=== PATIENT | male | born 1990 | race Caucasian/White ===

== ENCOUNTER 2018-12-03 15:40 | Emergency (ER) | payer SELFPAY ==
[~2018-12-03] VITALS: Ht 177.8 cm; Wt 90.2 kg
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
--- NOTE | 2018-12-03 16:14 | NUR ---
PT NOW RESTING CALMLY IN GURNEY ON R SIDE. EVEN/REGULAR RESPIRATIONS.
[2018-12-03] MEDS ORDERED: ZIPRASIDONE 20 MG INJ IM ONE ×2 (16:48→17:00)
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
--- NOTE | 2018-12-03 17:11 | NUR ---
REPORT TO ANDREA GLOVER. PT MOVED TO ROOM 39. SITTER PRESENT. 2-POINT RESTRAINTS IN PLACE, +CMS. PT MOVING ALL EXTREMITIES. PT ASSISTED BY TECH TO USE URINAL, APPROX 400ML CLEAR URINE OUT. PT IN SEATED POSITION AND PROTECTING OWN AIRWAY
[2018-12-03 17:17] LABS: BASOPHILS # (AUTO) 0.02 x10^3/uL (0-0.1); BASOPHILS % (AUTO) 0 % (0-1); EOSINOPHILS # (AUTO) 0.07 x10^3/uL (0-0.4); EOSINOPHILS % (AUTO) 1 % (1-7); LYMPHOCYTES # (AUTO) 2.86 x10^3/uL (1-3.4); LYMPHOCYTES % (AUTO) 30 % (22-44); MD NO; MEAN CORPUSCULAR HEMOGLOBIN 32.2 pg (27.5-34.5); MEAN CORPUSCULAR HGB CONC 34.6 g/dL (33.2-36.2); MEAN CORPUSCULAR VOLUME 93.2 fL (81-97); MEAN PLATELET VOLUME 7.9 fL (7.4-10.4); MONOCYTES # (AUTO) 0.54 x10^3/uL (0.2-0.8); MONOCYTES % (AUTO) 6 % (2-9); NEUTROPHILS # (AUTO) 5.99 x10^3/uL (1.8-6.8); NEUTROPHILS % (AUTO) 63 % (42-75); PLATELET COUNT 330 x10^3/uL (130-400); RED BLOOD COUNT 5.12 x10^6/uL (4.38-5.82); RED CELL DISTRIBUTION WIDTH 13.6 % (9.4-14.8)
[2018-12-03 17:29] LABS: ANION GAP 6 mmol/L (5-15); CALCIUM 8.3 mg/dL (8.5-10.1); CHLORIDE 110 mmol/L (98-107)
[2018-12-03 17:34] LABS: CREATININE 1.02 mg/dL (0.7-1.3)
--- NOTE | 2018-12-03 17:58 | NUR ---
pt out of 2 point restraints at this time. pt is less aggresive at this time. pt on gurney and placed in high fowlers position. sitter is in hallway at this time. will continue to check on pt status.
--- NOTE | 2018-12-03 17:58 | NUR ---
late note 1730. lab called for critical values. etoh 0.480. dr tatum made aware.
--- NOTE | 2018-12-03 19:04 | NUR ---
REPORT RECEIVED FROM EDMUNDO MENDEZ.
[2018-12-03 19:17] VITALS: BP 114/78
--- NOTE | 2018-12-03 19:49 | NUR ---
pt sleeping in [facility]. repes even and unlabored. sitter monitoring from [facility] for safety.
--- NOTE | 2018-12-03 20:29 | NUR ---
PT GOT UP BUT PT WAS NOT ABLE TO WALK. PT URINATING ON THE FLOOR.
--- NOTE | 2018-12-03 21:29 | NUR ---
PT SLEEPING IN [facility]. RESPS EVEN AND UNLABORED. SITTER MONITORING FROM [facility] FOR SAFETY.
--- NOTE | 2018-12-03 23:00 | NUR ---
TASK RN: DC EDUCATION PROVIDED BY JASKARAN ISABEL. PT PROVIDED CLEAN SHIRT. PT AMBULATED STEADILY TO DC WITH CHALO. Addendum: 12/03/18 at 2301 by ANICETO FRIEND IN LOBBY TO TRANSPORT PT HOME
== END 2018-12-03 23:02 | disposition home or self-care (01) ==
LOC: ED 22:35
DX: F10.120 Alcohol abuse with intoxication, uncomplicated (principal)
CPT/HCPCS: 80048; 80307; 82962; 85025; 96372; 99283; J3486

== ENCOUNTER 2018-12-19 12:09 | Emergency (ER) | payer MEDICAID, OTHER ==
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
[2018-12-19 17:01] VITALS: BP 131/83
== END 2018-12-19 17:32 | disposition home or self-care (01) ==
LOC: ED 17:26
DX: F10.129 Alcohol abuse with intoxication, unspecified (principal)
CPT/HCPCS: 99283

== ENCOUNTER 2020-02-17 20:39 | Emergency (ER) | payer MEDICAID ==
[~2020-02-17] VITALS: Ht 182.9 cm; Wt 82.0 kg
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
--- NOTE | 2020-02-17 22:30 | NUR ---
LATE ENTRY - PT WAS MORE ALERT AND COOPERATIVE. PT ABLE TO GIVE HIS NAME AND DATE OF . PT STATED HE WOULD BE COOPERATIVE SO HE WAS TAKEN OUT OF RESTRAINTS. NO SKIN BREAKDOWN NOTED. PT THEN FOUND SITTING ON THE FLOOR. PT REMINDED TO STAY IN THE BED DUE TO SAFETY CONCERNS. CAYDEN CHADWICK TO BEDSIDE TO ASSIST IN GETTING BACK TO BED. PATIENT LEANED FORWARD WHILE ATTEMPTING TO STAND BUT DID NOT HIT HEAD AND WAS ASSISTED BACK TO THE BED BY CAYDEN CHADWICK AND THIS RN. PT AT RISK FOR FALL AND VERY INTOXICATED. PT ALSO SWINGING AT MEN AND FLIPPING THEM OFF WHILE IN THE ROOM. PT. THEN PLACED IN SOFT RESTRAINTS AND MOVED TO ROOM 4.
--- NOTE | 2020-02-17 22:55 | NUR ---
REPORT RECEIVED FROM ANDREA BARRAGAN. PT TO ED ROOM 4, PT REMOVED SW RESTRAINTS AND ATTEMPTING TO GET OOB, SECURITY AT PT'S BEDSIDE FOR LOCKING RESTRAINT APPLICATION X4, MONITORS APPLIED, SIDERAILS UP X2, CALL LIGHT WITHIN REACH.
--- NOTE | 2020-02-17 23:00 | NUR ---
REPORT GIVEN TO DIONY RN AND PT TAKEN TO ROOM 4
--- NOTE | 2020-02-17 23:33 | NUR ---
pt resting on gurney pulling at and attempting to remove restraints, discussed poc with pt, pt continues to attempt to pull at restraints. monitors in place, siderail sup x2, call light within reach
--- NOTE | 2020-02-18 00:40 | NUR ---
PT TWISTING BODY AND PULLING IN ATTEMPT TO REMOVE RESTRAINTS, PA UPDATED AND AT PT'S BEDSIDE FOR RECHECK, PA TO DISCUSS PT'S STATUS WITH ERP
[2020-02-18] MEDS ORDERED: LORazepam 2 MG/ML, 1ML ONE (00:54)
--- NOTE | 2020-02-18 00:58 | NUR ---
PT MEDIATED PER MAR
[2020-02-18] MEDS ORDERED: LORazepam 2 MG/ML, 1ML IM ONE (01:00)
[2020-02-18] MEDS ORDERED: LORazepam 1MG TABLET PO ONE ×2 (01:00)
--- NOTE | 2020-02-18 01:55 | NUR ---
PT TALKING LOUDLY IN ROOM TOWARDS [facility], STATED " I HAVE A BIG DELONTE". THIS RN DISCUSSED WITH PT HIS INAPPROPRIATE BEHAVIOR, PT VERBALIZED UNDERSTANDING AND AGREED TO STOP. MONITORS IN PLACE, SIDERAILS UP X2, CALL LIGHT WITHIN REACH
--- NOTE | 2020-02-18 03:04 | NUR ---
PT RESTING WITH EYES CLOSED, NAD, EQUAL CHEST RISE/FALL OBSERVED, CALL LIGHT WITHIN REACH. WILL CONTINUE TO MONITOR
[2020-02-18 03:40] VITALS: BP 116/74
--- NOTE | 2020-02-18 03:49 | NUR ---
REPORT GIVEN TO ANDREA BOYLE
--- NOTE | 2020-02-18 04:26 | NUR ---
Pt resting comfortably, respirations even and unlabored. Sitter in direct line of sight.
== END 2020-02-18 05:54 | disposition home or self-care (01) ==
LOC: MERGE 20:39 → EDBD 20:39 → ED 02-18 05:43
DX: F10.120 Alcohol abuse with intoxication, uncomplicated (principal); Y90.0 Blood alcohol level of less than 20 mg/100 ml; R45.1 Restlessness and agitation
CPT/HCPCS: 96372; 99285; J2060